=== PATIENT | female | born 1980 | race Hispanic/Latino ===

== ENCOUNTER → 2020-11-16 | Day surgery (SDC) | payer OTHER ==
[~2020-11-16] MED LIST: DICYCLOMINE HCL20 MG PO; LIDOCAINE HCL 2% LOCAL INJ 5 ML SDV VIAL INJ ONE; METAMUCIL FIBE3.4 GM PO; PROPOFOL IV EMULSION 10 MG/ML 20 ML VIAL ONE; TERBINAFINE HC250 MG PO
[2020-11-16 12:25] VITALS: BP 111/67
== END | disposition home or self-care (01) ==
LOC: OR 13:15
PROVIDERS: ATTEND Internal Medicine
DX: R10.31 Right lower quadrant pain (principal); D12.2 Benign neoplasm of ascending colon; D12.4 Benign neoplasm of descending colon; R19.4 Change in bowel habit; E66.9 Obesity, unspecified; Z01.812 Encounter for preprocedural laboratory examination; Z20.822 Contact with and (suspected) exposure to COVID-19; Z68.37 Body mass index [BMI] 37.0-37.9, adult
CPT/HCPCS: 45380; 45385; 81025; J2001; J2704; U0002; 45378